=== PATIENT | male | born 1995 | race African-American/Black ===

== ENCOUNTER 2018-07-03 23:55 | Emergency (ER) | payer OTHER ==
[~2018-07-03] VITALS: Ht 188 cm; Wt 99.8 kg
[2018-07-04] MEDS ORDERED: NKM (00:04)
[2018-07-04] MEDS ORDERED: Norco 5mg/325mg tab ORAL ONE (00:15)
[2018-07-04 00:19] VITALS: BP 109/72
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
--- NOTE | 2018-07-04 00:45 | NUR ---
ED Nurse Note: Splint applied at bedside.
[2018-07-04] MEDS ORDERED: IBUPROFEN600 MG ORAL (00:47)
[2018-07-04] MEDS ORDERED: HYDROCODON-ACE1 EA15 ORAL (00:47)
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
[2018-07-04 00:53] VITALS: BP 109/72
--- NOTE | 2018-07-04 00:54 | NUR ---
ED Nurse Note: Patient cleared for discharge by ERMDamien. Patient AOx4, VSS, ambulatory with steady gait, no s/s of acute distress noted at this time. Patient provided with discharge instructions and medication prescriptions. patient verbalized understanding. Patient took all personal belongings with him. Patient instructed to follow up with PCP in 3x days. Patient has friend at bedside to take him home. Patient ID band removed.
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
== END 2018-07-04 00:55 | disposition home or self-care (01) ==
LOC: EMR 07-04 00:30
DX: S62.611A Displaced fracture of proximal phalanx of left index finger, initial encounter for closed fracture (principal); W23.0XXA Caught, crushed, jammed, or pinched between moving objects, initial encounter; Y92.89 Other specified places as the place of occurrence of the external cause
CPT/HCPCS: 29130; 99283